=== PATIENT | female | born 1995 | race Caucasian/White ===

== ENCOUNTER 2021-10-18 22:13 | Emergency (ER) | payer OTHER ==
[~2021-10-18] VITALS: Ht 157.5 cm; Wt 63.5 kg
[2021-10-18 22:47] VITALS: BP_SYST 120
--- NOTE | 2021-10-18 22:58 | NUR ---
Pt brought by self, A&Ox4, pt presents to ER with lower abdominal pain, skin pink and warm, cap refill <3, VSS, respirations even and unlabored, pt denies N/V.
[2021-10-18] MEDS ORDERED: MORPHINE 2 MG/ML INJ. SYRINGE IVP ONE (23:00)
[2021-10-18] MEDS ORDERED: NACL 0.9% 1,000 ML IV ONE (23:00)
[2021-10-18 23:11] LABS: BILIRUBIN,URINE 3+ (NEGATIVE); CLARITY/URINE SL CLOUDY (CLEAR); COLOR,URINE ORANGE (YELLOW); GLUCOSE,URINE TRACE (NEGATIVE); KETONES,URINE 2+ (NEGATIVE); LEUKOCYTE ESTERASE ,URINE 1+ (NEGATIVE); NITRITE, URINE NEGATIVE (NEGATIVE); PH,URINE 5.5 (5.0-8.0); PROTEIN URINE 1+ (NEGATIVE)
[2021-10-18 23:16] LABS: BLOOD, URINE TRACE (NEGATIVE)
[2021-10-18 23:22] LABS: BACTERIA,URINE MANY /HPF (None Seen)
[2021-10-18 23:37] VITALS: BP_SYST 117
--- NOTE | 2021-10-19 | NUR ---
Patient moved to bed 5
[2021-10-19 01:00] LABS: BASOPHILS % (AUTO) 0.4 % (0.0-2.0); EOSINOPHILS % (AUTO) 0.3 % (0.0-4.0); HEMATOCRIT 38.1 % (36-48); HEMOGLOBIN 12.5 g/dL (12.0-16.0); LYMPHOCYTES # (AUTO) 0.6 K/uL (1.0-5.5); LYMPHOCYTES % (AUTO) 5.4 % (20.5-51.5); MEAN CORPUSCULAR HEMOGLOBIN 29 pg (27-31); MEAN CORPUSCULAR HGB CONC 33 % (32-36); MEAN CORPUSCULAR VOLUME 87 fL (79.0-98.0); MONOCYTES # (AUTO) 0.6 K/uL (0.0-1.0); MONOCYTES % (AUTO) 4.9 % (1.7-9.3); NEUTROPHILS # (AUTO) 10.5 K/uL (1.8-7.7); PLATELET COUNT (AUTO) 301 K/uL (130-430); RED CELL DISTRIBUTION WIDTH 13.6 % (9.0-15.0); WHITE BLOOD COUNT (AUTO) 11.8 K/uL (4.8-10.8)
[2021-10-19 01:06] LABS: CALCIUM 8.8 mg/dL (8.4-11.0); CREATININE 0.83 mg/dL (0.55-1.30); POTASSIUM 3.6 mmol/L (3.5-5.1)
[2021-10-19 01:11] LABS: ALBUMIN 3.7 g/dL (3.4-4.8); TOTAL BILIRUBIN 1.7 mg/dL (0.0-1.0)
[2021-10-19] MEDS ORDERED: FAMOTIDINE PF 20 MG/2 ML VIAL IVP ONE (01:15)
[2021-10-19] MEDS ORDERED: FAMOTIDINE 20 MG TABLET PO ONE (01:30)
[2021-10-19] MEDS ORDERED: FAMO40TA71 PO (01:48)
[2021-10-19] MEDS ORDERED: NITR-85 PO (01:48)
--- NOTE | 2021-10-19 01:56 | NUR ---
Patient given written and verbal discharge instructions and verbalizes understanding. ER DR MIGDALIA GASTON discussed with patient the results and treatment provided. Patient in stable condition. ID arm band removed. I Rx of PEPCID, MACROBID given. Patient educated on pain management and to follow up with PMD. Pain Scale . Opportunity for questions provided and answered. Medication side effect fact sheet provided.
== END 2021-10-19 01:54 | disposition home or self-care (01) ==
LOC: SED 22:13
DX: K29.70 Gastritis, unspecified, without bleeding (principal); R10.13 Epigastric pain; N39.0 Urinary tract infection, site not specified; Z79.899 Other long term (current) drug therapy
CPT/HCPCS: 36415; 76376; 76700-TC; 80053; 81000; 81025; 82150; 83690; 85025; 87086; 87186-TC; 99284